=== PATIENT | male | born 1950 | race Hispanic/Latino ===

== ENCOUNTER → 2020-01-27 | Day surgery (SDC) | payer OTHER ==
[2020-01-23 09:32] LABS: BASOPHILS % 0.1 % (0.0-1.0); EOSINOPHILS # (AUTO) 0.1 (0.0-0.4); EOSINOPHILS % 1.3 % (0.0-6.0); HEMATOCRIT 51.3 % (34.2-44.1); HEMOGLOBIN 17.2 g/dL (12.0-16.0); LYMPHOCYTES # (AUTO) 2.6 (1.0-3.2); LYMPHOCYTES % 36.7 % (18.0-39.1); MEAN CORPUSCULAR HEMOGLOBIN 29.3 pg (28-32); MEAN CORPUSCULAR HGB CONC 33.5 g/dL (31-35); MEAN CORPUSCULAR VOLUME 87.4 fL (81-99); MONOCYTES # (AUTO) 0.6 (0.2-0.8); MONOCYTES % 8.4 % (4.4-11.3); NEUTROPHILS # (AUTO) 3.8 (2.1-6.9); NEUTROPHILS % 53.2 % (38.7-80.0); PLATELET COUNT 273 x10e3/uL (140-360); RED BLOOD COUNT 5.87 x10e6/uL (3.6-5.1)
--- NOTE | 2020-01-23 10:36 | Diagnostic Imaging Report ---
X-ray chest PA and lateral Comparison: None History: Preop Findings: Central airways unremarkable. Heart size borderline normal. Aorta is slightly tortuous. The mediastinal stripes interspaces and lines are unremarkable. There is no pleural effusion. There is no pneumothorax. No focal lung disease is seen. Visualized skeletal structures show degenerative changes. Upper abdomen unremarkable. Impression: No significant disease on this exam. Signed by: Faisal Gomez MD on 01/23/2020 10:33 AM
[~2020-01-27] MED LIST: ACETAMINOPHEN 1000 MG/100 ML 100 ML IV ONE; BUPIVACAINE HCL 0.5% INJ 30 ML VIAL INJ ONE; CEFAZOLIN SOD 1 GM/NS 50ML 50 ML IV ONE; DEXAMETHASONE SOD PHOS INJ 4 MG/ML VIAL ONE; EPHEDRINE SULFATE INJ 50 MG/ML VIAL ONE; EPINEPHRINE 1 MG/ML 30ML VIAL ONE; FENTANYL CITRATE/PF 100MCG/2 ML INJ ONE; HYDROCODONE/APAP 7.5MG-325MG 1 EA TAB ONE; KETOROLAC TROMETHAMINE 30 MG/ML VIAL ONE; LIDOCAINE 2% /EPINEPHRINE 20 ML SDV INJ ONE; LIDOCAINE HCL 2% JELLY 5 ML TUBE ONE; LIDOCAINE HCL 2% LOCAL INJ 5 ML SDV VIAL INJ ONE; MIDAZOLAM HCL 2 MG/2 ML VIAL ONE; ONDANSETRON HCL INJ 2MG/ML 2ML 2 MG/ML VIAL ONE; PROPOFOL IV EMULSION 10 MG/ML 20 ML VIAL ONE; ROCURONIUM BROMIDE 10 MG/ML 5ML VIAL IV ONE; ROPIVACAINE 0.5% 5 MG/ML 30 ML SDV ONE; SEVOFLURANE INHAL SOLN 250 ML PEN BTL ONE
--- OUTSIDE RECORDS SUMMARY | 2020-01-27 08:10 | XMS REPORT ---
Author Author [facility] Organization [facility] Address Unknown Phone Unavailable Care Team Providers Care Fitness Services Manager Name Role Phone UMAIR JOHNSON Unavailable Unavailable Problems This patient has no known problems. Allergies, Adverse Reactions, Alerts This patient has no known allergies or adverse reactions. Medications This patient has no known medications. Results Test Description Test Time Test Comments Text Results Atomic Results Result Comments CHEST 2 VIEWS 2020-01-23 10:31:00 [place] [address] Patient Name: HERMELINDO GALVEZ MR #: [id number] : 1950 Age/Sex: 69/F Req #: [id number] Adm Physician: Ordered by: UMAIR JOHNSON MD Report #: [id number] Location: OR Room/Bed: Procedure: [id number] DX/CHEST 2 VIEWS Exam Date: 01/23/20 Exam Time: 0916 REPORT STATUS: Signed X-ray chest PA and lateral Comparison: None History: Preop Findings: Central airways unremarkable. Heart size borderline normal. Aorta is slightly tortuous. The mediastinal stripes interspaces and lines are unremarkable. There is no pleural effusion. There is no pneumothorax. No focal lung disease is seen. Visualized skeletal structures show degenerative changes. Upper abdomen unremarkable. Impression: No significant disease on this exam. Signed by: eDbra Gomez MD on 01/23/2020 10:33 AM Dictated By: DEBRA GOMEZ MD [id number] Transcribed By: ROBIN on 01/23/20 1033 COPY TO: UMAIR JOHNSON MD
[2020-01-27 12:05] VITALS: BP 153/83
--- NOTE | 2020-01-27 15:46 | Operative Report ---
DATE OF PROCEDURE: 01/27/2020 SURGEON: Fausto Johnson MD FINANCIAL MANAGER: Baltazar Christian, certified PA. PREOPERATIVE DIAGNOSIS: Right shoulder rotator cuff tear. POSTOPERATIVE DIAGNOSIS: Right shoulder rotator cuff tear. PROCEDURES: Right shoulder arthroscopy, subacromial decompression, biceps tenodesis, rotator cuff repair, and distal clavicle resection. INDICATIONS: The patient is a 69-year-old gentleman, who has a long history of right shoulder pain despite conservative management. Clinic exam and MRI findings were consistent with a rotator cuff tear. The findings and options have been discussed. The lengthy recovery from rotator cuff repair has been explained. All of his questions have been answered. He states he understands and wishes to proceed. PROCEDURE IN DETAIL: The patient was brought to the operating room and placed under general anesthetic. He received prophylactic antibiotics and a regional block in the holding area. He was positioned in the beach chair position on the shoulder table. His right upper extremity was prepped and draped in a sterile manner. A preoperative time-out was performed. A posterior arthroscopy portal was established. The shoulder was insufflated with sterile saline and systematically inspected. The glenohumeral surfaces were generally well preserved. There was a lot of fraying of the labrum globally. The biceps tendon was frayed and incompetent. There was an approximate 2 cm tear of the supraspinatus. An electro blade shaver was introduced through the rotator cuff tear into the shoulder using a lateral portal. The labral tear was gently debrided. The biceps tendon was released the supraglenoid at its origin on the supraglenoid tubercle. The biceps tendon was retained for later tenodesis. The articular surface of the rotator cuff was gently debrided back to more healthy tissue. Some of the synovitis was gently electrocauterized. The scope was then placed into the subacromial space. Extensive subacromial bursitis was encountered. A fairly aggressive subacromial bursectomy was performed with the electro blade shaver. A subacromial decompression and distal clavicle resection were performed. An anterior working portal was utilized for the distal clavicle resection. An Arthrex bioabsorbable SpeedBridge rotator cuff repair system was utilized. An awl was used to create suture anchor positions at the anterior and posterior most portions of the tear. The bioabsorbable suture anchors preloaded with FiberTape stitches were then passed. The anterior suture was passed through and around the biceps tendon. This was then passed through the rotator cuff. The anterior portal was used as a shuttle. Once the suture anchors had been seated and both of the FiberTape stitches were passed using a Demandbaseion suture passer, they were then tensioned and anchored to the superior lateral humeral cortex using secondary suture anchors. Intraoperative photograph documented a well tensioned repair with the tendon down to bleeding cancellous bone of the greater tuberosity. This had been decorticated with a shaver prior to the repair. The shoulder was further irrigated. The arthroscopic instruments were removed. The portal incisions were closed with nylon stitches. A sterile bandage and an UltraSling were applied. Estimated blood loss was less than 10 mL. At the end of the procedure, all needle and sponge counts were correct. Fausto Johnson MD DR/NOEL /[id number]
== END | disposition home or self-care (01) ==
LOC: EDSEX 08:08 → OR 08:08
PROVIDERS: ATTEND Specialist
DX: S46.021A Laceration of muscle(s) and tendon(s) of the rotator cuff of right shoulder, initial encounter (principal); S43.431A Superior glenoid labrum lesion of right shoulder, initial encounter; M75.51 Bursitis of right shoulder; M65.811 Other synovitis and tenosynovitis, right shoulder; X58.XXXA Exposure to other specified factors, initial encounter; Z01.810 Encounter for preprocedural cardiovascular examination; Z01.812 Encounter for preprocedural laboratory examination; Z01.818 Encounter for other preprocedural examination; Z11.59 Encounter for screening for other viral diseases; Z68.35 Body mass index [BMI] 35.0-35.9, adult
CPT/HCPCS: 29824; 29827; 29828; 36415; 71046; 85025; 87635; 93005; C1713 ×2; J0131; J0690; J1100; J1885; J2001 ×3; J2250; J2405; J2704; J2795; J3010